=== PATIENT | male | born 1980 | race Caucasian/White ===

== ENCOUNTER 2018-04-15 17:15 | Observation (INO) ==
[2018-04-15] MEDS ORDERED: 0.9 % Sodium Chloride 1,000 ML IVC ONE (19:33)
[2018-04-15] MEDS ORDERED: Orphenadrine 60 MG/2 ML VIAL IVP ONE (19:37)
--- NOTE | 2018-04-15 19:38 | Emergency Department Note ---
Disposition Clinical Impression: Dehydration Rhabdomyolysis Qualifiers: Rhabdomyolysis type: non-traumatic Qualified Code(s): M62.82 - Rhabdomyolysis Disposition: Admitted As Inpatient Condition: Good General Adult HPI - General Chief complaint: ED Weakness Stated complaint: DEHYDRATED Source: patient, EMS Mode of arrival: EMS Limitations: no limitations Nursing Notes Reviewed: Yes Vital Signs Reviewed: Yes - History of Present Illness HPI Narrative: Patient presents to the ED via EMS with complaint of being dehydrated after becoming overheated while working outside. 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 He started becoming very hot and experienced muscle cramping. He was given ice packs enroute to the ED by EMS. He complains of diffuse muscle cramping in his arms, legs and abdomen. He denies any chest pain or shortness of breath. He does report some mild nausea but no vomiting or diarrhea. He does not have any chronic medical problems and does not take any routine medications. He denies any tobacco, alcohol or drug use. States he has been dehydrated before with similar symptoms. He states that his mouth is dry and he is very thirsty as well. Pain Scale: 0 - Related Data Allergies Allergy/AdvReac Type Severity Reaction Status Date / Time No Known Allergies Allergy Verified 04/15/18 17:20 Constitutional: Reports: as per HPI Eyes: Denies: eye pain, eye discharge, vision change ENT ED: Denies: ear pain, throat pain, dental pain, hearing loss, epistaxis, congestion, dysphagia Cardiovascular: Denies: chest pain, palpitations, dyspnea on exertion, edema, syncope Respiratory: Denies: cough, dyspnea, wheezes, hemoptysis, stridor Gastrointestinal: Denies: abdominal pain, nausea, vomiting, diarrhea, constipation, hematemesis, melena, hematochezia Genitourinary: Denies: urgency, dysuria, frequency, hematuria Musculoskeletal: Denies: back pain, neck pain, arthralgia, myalgia (diffuse muscle cramps) Integumentary: Denies: rash, abrasion, lesions Neurological: Denies: headache, weakness, numbness, paresthesias, confusion, abnormal gait, vertigo Psychiatric: Denies: anxiety, depression, suicidal thoughts, homicidal thoughts , auditory hallucinations, visual hallucinations Endocrine: Denies: fatigue Hematological/Lymphatic: Denies: easy bleeding, easy bruising Allergic/Immunologic: Denies: facial swelling, urticaria Past Medical History - Past Medical History Medical history: Reports: no medical history Psychiatric history: Reports: no psych history - Social History Smoking Status: Never smoker Smokeless Tobacco Status: No Alcohol use: Reports: none Drug use: Reports: none Physical Exam - General Limitations: no limitations General appearance: alert, in no apparent distress - Head Head exam: atraumatic, normocephalic, normal inspection - Eye Eye exam: Present: normal appearance, PERRL, EOMI - ENT ENT exam: normal exam, normal oropharynx, mucous membranes dry - Neck Neck exam: Present: normal inspection, full ROM, trachea midline - Chest Chest inspection: Present: normal inspection, symmetric chest wall rise - Respiratory Respiratory exam: Present: normal lung sounds bilaterally - Cardiovascular Cardiovascular exam: Present: regular rate, normal rhythm, normal heart sounds - Abdominal Exam Abdominal exam: Present: soft, Non-Tender, normal bowel sounds. Absent: tenderness, distention, guarding, rebound, rigidity - Extremities Exam Extremities exam: Present: normal inspection, full ROM, normal capillary refill. Absent: tenderness, pedal edema - Back Exam Back exam: Present: normal inspection, full ROM. Absent: tenderness - Neurological Exam Neurological exam: Present: alert, oriented X3 - Psychiatric Psychiatric exam: Present: normal affect, normal mood - Skin Skin exam: Present: warm, dry, intact, erythema (flushed) Course Course Narrative: Patient presents the ED complaining of diffuse muscle cramps and a feeling of being dehydrated after becoming overheated while working outdoors. On arrival he is afebrile, not tachycardic or hypotensive. Physical exam was notable only for flushed skin and report of diffuse muscle cramping, particularly in the abdomen but no abdominal tenderness or other form of abdominal pain. He will be given IV fluids as well as medication for nausea and his muscle spasms. - Reevaluation(s) Reevaluation #1: Lab work shows a leukocytosis. Sodium was low at - Consultations Consultation #1: Laboratory studies do show a leukocytosis the patient has no obvious source of infection. BMP shows hyponatremia at 127 that is likely hypovolemic and hypoosmolar nature. CK was elevated at 1512. Patient is beginning to have some relief of his spasms and cramping at this time. Will continue IV fluids. Consultation #2: After his second liter bolus of fluid patient reports resolution of cramping and is overall feeling much better. Repeat lab work showed an improvement in his sodium to 132 however his CK continues to climb to 1566. Given these findings and patient's initial presentation he would benefit from overnight observation with continued IV fluid hydration and lab reevaluation. Spoke to patient and his who are in agreement. I then spoke to the hospitalist call , Dr. Delgado ,who has agreed to accept the patient. Vital Signs Temperature 98.9 F 04/15/18 17:16 Pulse Rate 86 04/15/18 17:16 Respiratory Rate 18 04/15/18 17:16 Blood Pressure 139/83 04/15/18 17:16 O2 Sat by Pulse Oximetry 99 04/15/18 17:16 Temperature 97.9 F 04/16/18 05:06 Pulse Rate 68 04/16/18 05:06 Respiratory Rate 17 04/16/18 05:06 Blood Pressure 113/71 04/16/18 05:06 O2 Sat by Pulse Oximetry 95 04/16/18 05:06 Oxygen Delivery Oxygen Delivery Room Air Medical Decision Making - Medical Records Medical records reviewed: Yes I reviewed the patient's medical records. - Lab Data Lab results reviewed: Yes I reviewed the patient's lab results. Result diagrams: 04/15/18 19:45 04/15/18 22:34 Lab Results 04/15/18 04/15/18 04/15/18 Range/Units 19:45 19:45 22:34 WBC 16.8 H (4.3-11.1) K/mcL RBC 5.11 (4.19-5.50) M/mcL Hgb 14.4 (12.9-16.9) g/dL Hct 41.6 (37.5-50.1) % MCV 81.4 L (83.0-100.0) fL MCH 28.2 (28.0-33.3) pg MCHC 34.6 (31.6-35.5) g/dL RDW 13.1 (11.5-14.5) % Plt Count 281 (140-400) K/mcL MPV 11.2 (9.4-12.4) fL Immature Gran % 0.3 (0-4) % Seg Neutrophils % 68.4 % Lymphocytes % 23.7 % Monocytes % 7.1 % Eosinophils % 0.1 % Basophils % 0.4 % Neutrophils # 11.5 H (1.6-8.9) K/mcL Lymphocytes # 4.0 (0.6-4.6) K/mcL Monocytes # 1.2 (0.0-1.3) K/mcL Eosinophils # 0.0 (0.0-0.6) K/mcL Basophils # 0.1 (0.0-0.2) K/mcL Sodium 127 L 132 L (136-145) mEq/L Potassium 3.7 3.7 (3.5-5.1) mEq/L Chloride 93 L 100 (98-107) mEq/L Carbon Dioxide 20 L 23 (23-29) mEq/L BUN 15 12 (6-20) mg/dL Creatinine 1.20 1.06 (0.70-1.30) mg/dL Est GFR ( Amer) > 60 > 60 (> 60) Est GFR (Non-Af Amer) > 60 > 60 (> 60) BUN/Creatinine Ratio 13 11 (6-26) Glucose 114 H 115 H (70-105) mg/dL Calculated Osmolality 266 L 275 L (280-300) Calcium 10.2 9.0 (8.6-10.3) mg/dL Creatine Kinase 1512 H 1566 H (30-223) Units/L
[2018-04-15] MEDS ORDERED: Ondansetron 4 MG/2 ML VIAL IVP ONE (19:45)
[2018-04-15 19:53] LABS: Basophils # 0.1 K/mcL (0.0-0.2); Basophils % 0.4 %; Eosinophils % 0.1 %; Hematocrit 41.6 % (37.5-50.1); Hemoglobin 14.4 g/dL (12.9-16.9); Immature Granulocytes % 0.3 % (0-4); Lymphocytes % 23.7 %; Mean Corpuscular HGB Conc 34.6 g/dL (31.6-35.5); Mean Corpuscular Hemoglobin 28.2 pg (28.0-33.3); Mean Corpuscular Volume 81.4 fL (83.0-100.0); Mean Platelet Volume 11.2 fL (9.4-12.4); Monocytes # 1.2 K/mcL (0.0-1.3); Monocytes % 7.1 %; Neutrophils # 11.5 K/mcL (1.6-8.9); Platelet Count 281 K/mcL (140-400); Red Blood Count 5.11 M/mcL (4.19-5.50); Red Cell Distribution Width 13.1 % (11.5-14.5); Segmented Neutrophils % 68.4 %
[2018-04-15 20:11] LABS: BUN/Creatinine Ratio 13 (6-26); Blood Urea Nitrogen 15 mg/dL (6-20); Calcium 10.2 mg/dL (8.6-10.3); Carbon Dioxide 20 mEq/L (23-29); Chloride 93 mEq/L (98-107); Creatine Kinase 1512 Units/L (30-223); Glucose 114 mg/dL (70-105); Osmolality,Calculated 266 (280-300); Potassium 3.7 mEq/L (3.5-5.1); Sodium 127 mEq/L (136-145); eGFR For African Americans > 60 (> 60); eGFR For Non-African Americans > 60 (> 60)
[2018-04-15] MEDS ORDERED: 0.9 % Sodium Chloride 1,000 ML ONE (20:51)
[2018-04-15] MEDS ORDERED: 0.9 % Sodium Chloride 1,000 ML IVC STA (20:53)
[2018-04-15 22:59] LABS: BUN/Creatinine Ratio 11 (6-26); Blood Urea Nitrogen 12 mg/dL (6-20); Carbon Dioxide 23 mEq/L (23-29); Chloride 100 mEq/L (98-107); Creatine Kinase 1566 Units/L (30-223); Glucose 115 mg/dL (70-105); Osmolality,Calculated 275 (280-300); Potassium 3.7 mEq/L (3.5-5.1); Sodium 132 mEq/L (136-145); eGFR For African Americans > 60 (> 60); eGFR For Non-African Americans > 60 (> 60)
[2018-04-15] MEDS ORDERED: 0.9 % Sodium Chloride 1,000 ML IVC SCH (23:15)
[2018-04-15] MEDS ORDERED: Naloxone 0.4 MG/ML INJ IVP PRN (23:17)
[2018-04-15] MEDS ORDERED: Acetaminophen 325 MG TABLET PO PRN (23:17)
[2018-04-16] MEDS ORDERED: 0.9 % Sodium Chloride 1,000 ML ONE (00:18)
[2018-04-16] MEDS ORDERED: Naloxone 0.4 MG/ML INJ IVP PRN (00:18)
[2018-04-16] MEDS ORDERED: Acetaminophen 325 MG TABLET PO PRN (00:18)
[2018-04-16] MEDS: 0.9 % Sodium Chloride 1,000 ML IVC SCH ×2 (00:46→07:08)
[2018-04-16 06:09] LABS: Basophils % 0.4 %; Eosinophils # 0.1 K/mcL (0.0-0.6); Eosinophils % 1.2 %; Hematocrit 40.1 % (37.5-50.1); Hemoglobin 13.4 g/dL (12.9-16.9); Immature Granulocytes % 0.1 % (0-4); Lymphocytes % 40.1 %; Mean Corpuscular HGB Conc 33.4 g/dL (31.6-35.5); Mean Corpuscular Volume 83.7 fL (83.0-100.0); Mean Platelet Volume 11.8 fL (9.4-12.4); Monocytes # 0.6 K/mcL (0.0-1.3); Monocytes % 8.5 %; Neutrophils # 3.7 K/mcL (1.6-8.9); Platelet Count 223 K/mcL (140-400); Red Blood Count 4.79 M/mcL (4.19-5.50); Red Cell Distribution Width 13.2 % (11.5-14.5); Segmented Neutrophils % 49.7 %
[2018-04-16 06:28] LABS: BUN/Creatinine Ratio 12 (6-26); Blood Urea Nitrogen 11 mg/dL (6-20); Calcium 8.9 mg/dL (8.6-10.3); Carbon Dioxide 24 mEq/L (23-29); Chloride 104 mEq/L (98-107); Creatine Kinase 1766 Units/L (30-223); Glucose 94 mg/dL (70-105); Osmolality,Calculated 283 (280-300); Potassium 3.5 mEq/L (3.5-5.1); Sodium 137 mEq/L (136-145); eGFR For African Americans > 60 (> 60); eGFR For Non-African Americans > 60 (> 60)
[2018-04-16 07:12] VITALS: BP 126/73
--- NOTE | 2018-04-16 11:23 | Internal Med History&Physical ---
Date of Encounter: 04/16/18 Time of Encounter: 10:50 Assessment and Plan (1) Rhabdomyolysis Current visit: Yes Status: Acute He was ordered IV fluids and serial CK through emergency room. He states he feels back to his baseline except for mild residual abdominal wall muscle soreness. Qualifiers: Rhabdomyolysis type: non-traumatic Qualified Code(s): M62.82 - Rhabdomyolysis Internal Medicine - H&P: HPI Chief complaint: Muscle cramps Admitted From: Emergency Dept Plans for Post Hospital Care: Home History of present illness: Mr. PHAM is a 37 year old male who came to emergency room stating he developed muscle cramps in his arms and legs and abdomen after working in the heat outdoors. He states he did not have adequate water intake. He denies delirium or vomiting. He was evaluated emergency room and found to have leukocytosis and elevated CK. He was admitted to Medr floor for IV hydration and ongoing care needs. He reports similar but less severe muscle cramps previously with exercise. Past Med Surg Social Fam HX - Past Medical History Medical history: no medical history Psychiatric history: no psych history - Past Surgical History Surgical History: no surgical history - Social History Smoking Status: Never smoker Smokeless Tobacco Status: No Alcohol use: none Drug use: none - Family History Sister Hx Family Medical Disorders: Yes (liver issues) Internal Medicine - H&P: Meds 3 Allergy/AdvReac Type Severity Reaction Status Date / Time No Known Allergies Allergy Verified 04/15/18 17:20 All Systems PM: A 10-system review of systems was performed and is negative for pertinent findings except as documented above in the HPI. Review of systems: Gen.: He states his weight has increased 20 pounds in the past year since stopping smoking Cardiovascular: He denies GA hypertension or heart failure angina DVT or pulmonary embolus Respiratory: He smoked from age [age] a total of 21 years up to 2 packs per day. He denies chronic lung disease. GI: He denies disorders of his liver gallbladder or exocrine pancreas : He denies hematuria dysuria or kidney stones Neurologic: He denies large distribution strokes or seizures. Endocrine: He denies diabetes thyroid disease or hyperlipidemia Hematology/oncology: He denies blood disorders cancers or anemia Psychiatric: He denies anxiety depression or other mental health issues [place] skeletal: He has DJD but denies gout or other bone joint or muscle disorders. - Constitutional Vitals: Temp Pulse Resp BP Pulse Ox 98.2 F 71 16 126/73 95 04/16/18 06:00 04/16/18 06:00 04/16/18 06:00 04/16/18 06:00 04/16/18 06:00 Exam: Gen.: He is a well-developed overweight male lying in bed who appears in no acute distress. HEENT: Head is atraumatic and normocephalic. Eyes: EOMI. There is no scleral icterus. Mouth: Mucosa is moist. Neck: Supple and nontender. There is no thyromegaly or adenopathy noted. Heart: Regular without murmurs gallops or ectopics Lungs: No wheezes or crackles are heard. Abdomen: Soft and nontender. No masses or guarding are noted. Extremities: There is no cyanosis edema or clubbing noted. Dorsalis pedis and posttibial pulses are 2 over 2 bilaterally. Neurologic: Mental status: He is talkative and a good historian. Cranial nerves : Smile is symmetric. Forehead wrinkles bilaterally. Tongue protrudes midline. EOMI. Motor: There is no pronator drift. Cerebellar: Finger to nose is intact bilaterally. Skin: Warm and dry Internal Med - H&P Results - Labs CBC & Chem 7: 04/16/18 04:30 04/16/18 04:30 Labs: Short CBC 04/16/18 Range/Units 04:30 WBC 7.4 D (4.3-11.1) K/mcL Hgb 13.4 (12.9-16.9) g/dL Hct 40.1 (37.5-50.1) % Plt Count 223 (140-400) K/mcL Neutrophils # 3.7 (1.6-8.9) K/mcL BMP 04/16/18 04:30 Sodium 137 Potassium 3.5 Chloride 104 Carbon Dioxide 24 BUN 11 Creatinine 0.93 Glucose 94 Calcium 8.9 - VTE Reasons for not Prescribing Prophylaxis: Treatment not Indicated - Low risk for VTE
--- NOTE | 2018-04-16 11:34 | Discharge Summary ---
Date of Encounter: 04/16/18 Time of Encounter: 10:50 - Discharge Diagnosis (1) Rhabdomyolysis Priority: Primary Status: Acute Qualifiers: Rhabdomyolysis type: non-traumatic Qualified Code(s): M62.82 - Rhabdomyolysis Hospital course: Mr. PHAM is a 37 year old male who came to emergency room stating he developed muscle cramps in his arms and legs and abdomen after working in the heat outdoors. He states he did not have adequate water intake. He denies delirium or vomiting. He was evaluated in emergency room and found to have leukocytosis and elevated CK. He was admitted to [facility] for IV hydration and ongoing care needs. Initial orders were written by the emergency room physician. I saw him on April 16 and performed the history and physical and discharge. He was given IV fluids. By the time I saw him his muscle cramps had resolved. CK robert slightly to 1766 by the day of discharge. Creatinine decreased to 0.92 with hydration. When I saw him he felt back to his baseline and stable for discharge home. I counseled him regarding increased fluid intake and increasing potassium ingestion with food and/or OTC potassium supplements. I encouraged him to follow-up with a PCP within 1 week. - Time Spent with Patient Total time spent providing and/or coordinating discharge services: - Discharge Medications Allergies/Adverse Reactions: 3 Allergy/AdvReac Type Severity Reaction Status Date / Time No Known Allergies Allergy Verified 04/15/18 17:20 Date of admission: 04/15/18 23:25 Primary care physician: PCP NONE - Constitutional Vitals: Temp Pulse Resp BP Pulse Ox 98.2 F 71 16 126/73 95 04/16/18 06:00 04/16/18 06:00 04/16/18 06:00 04/16/18 06:00 04/16/18 06:00 - Patient Status Disposition: Home, Self-Care Condition: Good Overall status at discharge: patient is progressing back to baseline - Discharge Instructions Follow Up With: NONE,PCP [Primary Care Provider] - 1 week Forms: ED Satisfaction Letter - Diet and Activity Activity: resume usual activities as tolerated Diet: advance to your usual diet - VTE Reasons for not Prescribing Prophylaxis: Treatment not Indicated - Low risk for VTE
== END 2018-04-16 12:15 | disposition home or self-care (01) ==
LOC: EMEROOPIK 17:15 → INPPIK 17:15
PROVIDERS: ADMIT Internal Medicine; ATTEND Internal Medicine